=== PATIENT | male | born 1980 | race Two or more races ===

== ENCOUNTER 2017-02-10 11:24 | Emergency (ER) | payer MEDICAID, OTHER, SELFPAY ==
[~2017-02-10] VITALS: Ht 180.3 cm; Wt 113.0 kg
[2017-02-10 11:29] VITALS: BP 128/93
== END 2017-02-10 11:40 | disposition home or self-care (01) ==
LOC: ED 11:34
DX: J03.00 Acute streptococcal tonsillitis, unspecified (principal)
CPT/HCPCS: 99283

== ENCOUNTER 2017-03-27 22:33 | Observation (INO) | payer MEDICAID ==
[~2017-03-27] VITALS: Ht 175.3 cm; Wt 110.0 kg
[2017-03-27 23:33] LABS: AMPHETAMINE SCREEN, URINE Positive (Negative); BARBITURATE SCREEN, URINE Negative (Negative); BENZODIAZEPINE SCREEN, URINE Positive (Negative); CANNABINOID SCREEN, URINE Positive (Negative); COCAINE SCREEN, URINE Negative (Negative); METHADONE SCREEN, URINE Negative (Negative); OPIATE SCREEN, URINE Negative (Negative)
[2017-03-28 00:03] LABS: BASOPHILS # (AUTO) 0.04 x10^3/uL (0-0.1); BASOPHILS % (AUTO) 0 % (0-1); EOSINOPHILS # (AUTO) 0.19 x10^3/uL (0-0.4); EOSINOPHILS % (AUTO) 2 % (1-7); LYMPHOCYTES # (AUTO) 2.34 x10^3/uL (1-3.4); LYMPHOCYTES % (AUTO) 20 % (22-44); MD NO; MEAN CORPUSCULAR HEMOGLOBIN 30.3 pg (27.5-34.5); MEAN CORPUSCULAR HGB CONC 33.1 g/dL (33.2-36.2); MEAN CORPUSCULAR VOLUME 91.5 fL (81-97); MEAN PLATELET VOLUME 7.8 fL (7.4-10.4); MONOCYTES # (AUTO) 0.91 x10^3/uL (0.2-0.8); MONOCYTES % (AUTO) 8 % (2-9); NEUTROPHILS # (AUTO) 8.54 x10^3/uL (1.8-6.8); NEUTROPHILS % (AUTO) 71 % (42-75); PLATELET COUNT 300 x10^3/uL (130-400); RED BLOOD COUNT 5.59 x10^6/uL (4.38-5.82); RED CELL DISTRIBUTION WIDTH 14.1 % (9.4-14.8)
[2017-03-28 00:11] LABS: ALANINE AMINOTRANSFERASE 148 U/L (12-78); CALCIUM 9.1 mg/dL (8.5-10.1); CHLORIDE 102 mmol/L (98-107); CREATININE 1.05 mg/dL (0.7-1.3)
[2017-03-28 00:13] LABS: ALKALINE PHOSPHATASE 73 U/L (45-117); BILIRUBIN,TOTAL 0.5 mg/dL (0.2-1.0); TOTAL PROTEIN 8.7 g/dL (6.4-8.2)
[2017-03-28 00:27] LABS: ANION GAP 11 mmol/L (5-15)
[2017-03-28 00:28] LABS: SALICYLATE LEVEL < 1.7 mg/dL (2.8-20.0)
[2017-03-28 00:29] LABS: ACETAMINOPHEN < 2 mcg/mL (10-30)
[2017-03-28] MEDS ORDERED: DOCUSATE 100 MG CAPSULE PO PRN (07:30)
[2017-03-28] MEDS ORDERED: ONDANSETRON ODT 4 MG PO PRN (07:30)
[2017-03-28] MEDS ORDERED: ACETAMINOPHEN 325 MG TABLET PO PRN (07:30)
[2017-03-28] MEDS: NICOTINE 7 MG/24 HR PATCH.TD24 TD SCH (07:30)
[2017-03-28] MEDS ORDERED: IBUPROFEN 800 MG TABLET PO PRN (08:00)
[2017-03-28] MEDS ORDERED: NICOTINE 7 MG/24 HR PATCH.TD24 ONE (08:29)
[2017-03-28] MEDS: SENNA/DOCUSATE TABLET PO SCH (09:00)
[2017-03-28] MEDS: ZIPRASIDONE 20MG CAPSULE PO SCH ×3 (09:00→20:38)
[2017-03-28] MEDS ORDERED: ZIPRASIDONE 20MG CAPSULE ONE ×2 (09:10→20:34)
[2017-03-28] MEDS ORDERED: SENNA/DOCUSATE TABLET ONE (09:10)
[2017-03-28 11:48] LABS: MICROSCOPIC NOT IND
[2017-03-28 11:55] LABS: CULTURE INDICATED? NO
[2017-03-28] MEDS: LORazepam 1MG TABLET PO PRN ×3 (16:08→20:38)
[2017-03-28] MEDS ORDERED: LORazepam 1MG TABLET ONE ×2 (17:52→20:34)
[2017-03-29 05:09] LABS: BASOPHILS # (AUTO) 0.18 x10^3/uL (0-0.1); BASOPHILS % (AUTO) 2 % (0-1); EOSINOPHILS # (AUTO) 0.63 x10^3/uL (0-0.4); EOSINOPHILS % (AUTO) 7 % (1-7); LYMPHOCYTES # (AUTO) 3.14 x10^3/uL (1-3.4); LYMPHOCYTES % (AUTO) 36 % (22-44); MD NO; MEAN CORPUSCULAR HEMOGLOBIN 30.7 pg (27.5-34.5); MEAN CORPUSCULAR VOLUME 90.3 fL (81-97); MEAN PLATELET VOLUME 7.6 fL (7.4-10.4); MONOCYTES # (AUTO) 0.74 x10^3/uL (0.2-0.8); MONOCYTES % (AUTO) 8 % (2-9); NEUTROPHILS # (AUTO) 4.15 x10^3/uL (1.8-6.8); NEUTROPHILS % (AUTO) 47 % (42-75); PLATELET COUNT 264 x10^3/uL (130-400); RED BLOOD COUNT 5.43 x10^6/uL (4.38-5.82); RED CELL DISTRIBUTION WIDTH 13.9 % (9.4-14.8)
[2017-03-29 05:13] LABS: ANION GAP 6 mmol/L (5-15); CALCIUM 8.7 mg/dL (8.5-10.1); CHLORIDE 107 mmol/L (98-107)
[2017-03-29 05:15] LABS: CREATININE 1.08 mg/dL (0.7-1.3)
[2017-03-29] MEDS ORDERED: ZIPRASIDONE 20MG CAPSULE ONE ×2 (08:02→20:24)
[2017-03-29] MEDS: ZIPRASIDONE 20MG CAPSULE PO SCH ×2 (08:04→20:27)
[2017-03-29] MEDS ORDERED: DOCUSATE 100 MG CAPSULE ONE (08:25)
[2017-03-29] MEDS ORDERED: LORazepam 1MG TABLET ONE ×3 (08:25→18:02)
[2017-03-29] MEDS: LORazepam 1MG TABLET PO PRN ×3 (08:28→18:23)
[2017-03-29] MEDS: NICOTINE 7 MG/24 HR PATCH.TD24 TD SCH (08:28)
[2017-03-29] MEDS: SENNA/DOCUSATE TABLET PO SCH (09:00)
[2017-03-29 13:46] LABS: ALBUMIN 3.3 g/dL (3.4-5.0); ANION GAP 4 mmol/L (5-15); CALCIUM 8.7 mg/dL (8.5-10.1); CHLORIDE 107 mmol/L (98-107)
[2017-03-29 13:50] LABS: ALANINE AMINOTRANSFERASE 137 U/L (12-78); ALKALINE PHOSPHATASE 79 U/L (45-117); BILIRUBIN,TOTAL 0.3 mg/dL (0.2-1.0); CREATININE 1.25 mg/dL (0.7-1.3); TOTAL PROTEIN 7.6 g/dL (6.4-8.2)
[2017-03-29] MEDS ORDERED: DIPHENHYDRAMINE 25 MG CAPSULE ONE ×2 (19:08→20:24)
[2017-03-29] MEDS: DIPHENHYDRAMINE 25 MG CAPSULE PO PRN ×2 (19:20→20:27)
[2017-03-30] MEDS: NICOTINE 7 MG/24 HR PATCH.TD24 TD SCH (07:30)
[2017-03-30] MEDS ORDERED: NICOTINE 14MG/24 HR PATCH.TD24 ONE (08:32)
[2017-03-30] MEDS ORDERED: ZIPRASIDONE 20MG CAPSULE ONE (08:32)
[2017-03-30] MEDS ORDERED: SENNA/DOCUSATE TABLET ONE (08:33)
[2017-03-30] MEDS: SENNA/DOCUSATE TABLET PO SCH (08:47)
[2017-03-30] MEDS: ZIPRASIDONE 20MG CAPSULE PO SCH ×2 (08:47→21:57)
[2017-03-30] MEDS ORDERED: LORazepam 1MG TABLET ONE (08:49)
[2017-03-30] MEDS: LORazepam 1MG TABLET PO PRN ×2 (08:50→17:00)
[2017-03-30] MEDS ORDERED: DIPHENHYDRAMINE 25 MG CAPSULE ONE (09:32)
[2017-03-30] MEDS: DIPHENHYDRAMINE 25 MG CAPSULE PO PRN ×2 (09:33→22:01)
[2017-03-30 16:39] VITALS: BP 119/84
[2017-03-30 16:52] VITALS: BP 119/84
[2017-03-30 20:03] VITALS: BP 136/93
[2017-03-31] MEDS: LORazepam 1MG TABLET PO PRN ×3 (06:08→18:33)
[2017-03-31 07:07] VITALS: BP 134/85
[2017-03-31] MEDS: NICOTINE 7 MG/24 HR PATCH.TD24 TD SCH (07:35)
[2017-03-31] MEDS: SENNA/DOCUSATE TABLET PO SCH (08:45)
[2017-03-31] MEDS: ZIPRASIDONE 20MG CAPSULE PO SCH ×2 (08:45→20:05)
[2017-03-31 20:02] VITALS: BP 126/83
[2017-03-31] MEDS: DIPHENHYDRAMINE 25 MG CAPSULE PO PRN (20:04)
[2017-03-31] MEDS ORDERED: TRAZODONE 100MG TABLET PO ONE (21:00)
[2017-04-01] MEDS: NICOTINE 7 MG/24 HR PATCH.TD24 TD SCH (07:42)
[2017-04-01 07:46] VITALS: BP 127/91
[2017-04-01] MEDS: SENNA/DOCUSATE TABLET PO SCH (08:01)
[2017-04-01] MEDS: ZIPRASIDONE 20MG CAPSULE PO SCH ×2 (08:01→20:17)
[2017-04-01] MEDS: LORazepam 1MG TABLET PO PRN ×2 (08:28→19:58)
[2017-04-01 19:07] VITALS: BP 118/76
[2017-04-01] MEDS: DIPHENHYDRAMINE 25 MG CAPSULE PO PRN (20:17)
[2017-04-01] MEDS ORDERED: TRAZODONE 100MG TABLET PO SCH (21:00)
[2017-04-02 07:39] VITALS: BP 120/79
[2017-04-02] MEDS: LORazepam 1MG TABLET PO PRN (08:01)
[2017-04-02] MEDS: SENNA/DOCUSATE TABLET PO SCH (08:01)
[2017-04-02] MEDS: ZIPRASIDONE 20MG CAPSULE PO SCH (08:01)
[2017-04-02] MEDS: NICOTINE 7 MG/24 HR PATCH.TD24 TD SCH (08:01)
== END 2017-04-02 13:58 ==
LOC: ED 23:59 → EDIP 03-28 03:06 → INTOOBSV 03-28 03:06 → OBSVTOIN 03-28 03:06 → 2N 03-30 16:05
PROVIDERS: ADMIT Internal Medicine; ATTEND Internal Medicine
DX: R45.851 Suicidal ideations (principal); D72.829 Elevated white blood cell count, unspecified; F12.90 Cannabis use, unspecified, uncomplicated; F15.90 Other stimulant use, unspecified, uncomplicated; F43.12 Post-traumatic stress disorder, chronic; F32.3 Major depressive disorder, single episode, severe with psychotic features; F17.210 Nicotine dependence, cigarettes, uncomplicated; I10 Essential (primary) hypertension; Z59.0 Homelessness
CPT/HCPCS: 36415; 80048; 80053; 80307; 80329; 81003; 85025; 93005; 99285; G0378; Q0163; G0480

== ENCOUNTER 2017-04-30 05:51 | Observation (INO) | payer MEDICAID ==
[~2017-04-30] VITALS: Ht 180.3 cm; Wt 115.1 kg
[2017-04-30] MEDS ORDERED: ZIPRASIDONE 20 MG INJ IM ONE ×2 (06:38→07:00)
[2017-04-30 07:12] LABS: BASOPHILS # (AUTO) 0.12 x10^3/uL (0-0.1); BASOPHILS % (AUTO) 1 % (0-1); EOSINOPHILS # (AUTO) 0.11 x10^3/uL (0-0.4); EOSINOPHILS % (AUTO) 1 % (1-7); LYMPHOCYTES # (AUTO) 2.85 x10^3/uL (1-3.4); LYMPHOCYTES % (AUTO) 19 % (22-44); MD NO; MEAN CORPUSCULAR HEMOGLOBIN 30.4 pg (27.5-34.5); MEAN CORPUSCULAR HGB CONC 34.1 g/dL (33.2-36.2); MEAN PLATELET VOLUME 7.5 fL (7.4-10.4); MONOCYTES # (AUTO) 0.96 x10^3/uL (0.2-0.8); MONOCYTES % (AUTO) 7 % (2-9); NEUTROPHILS # (AUTO) 10.73 x10^3/uL (1.8-6.8); NEUTROPHILS % (AUTO) 73 % (42-75); PLATELET COUNT 214 x10^3/uL (130-400); RED BLOOD COUNT 5.51 x10^6/uL (4.38-5.82); RED CELL DISTRIBUTION WIDTH 13.8 % (9.4-14.8)
[2017-04-30 07:25] LABS: ALANINE AMINOTRANSFERASE 52 U/L (12-78); ALBUMIN 3.9 g/dL (3.4-5.0); ANION GAP 8 mmol/L (5-15); CALCIUM 8.5 mg/dL (8.5-10.1); CHLORIDE 112 mmol/L (98-107)
[2017-04-30 07:27] LABS: ALKALINE PHOSPHATASE 76 U/L (45-117); BILIRUBIN,TOTAL 0.5 mg/dL (0.2-1.0); TOTAL PROTEIN 8.5 g/dL (6.4-8.2)
[2017-04-30 07:28] LABS: ACETAMINOPHEN < 2 mcg/mL (10-30); SALICYLATE LEVEL < 1.7 mg/dL (2.8-20.0)
[2017-04-30 07:31] LABS: AMPHETAMINE SCREEN, URINE Positive (Negative); BARBITURATE SCREEN, URINE Negative (Negative); BENZODIAZEPINE SCREEN, URINE Positive (Negative); CANNABINOID SCREEN, URINE Positive (Negative); COCAINE SCREEN, URINE Negative (Negative); METHADONE SCREEN, URINE Negative (Negative); OPIATE SCREEN, URINE Negative (Negative)
[2017-04-30] MEDS ORDERED: THIAMINE 100MG TABLET ONE ×2 (10:43→12:23)
[2017-04-30] MEDS ORDERED: FOLIC ACID 1 MG TABLET ONE ×2 (10:44→12:24)
[2017-04-30] MEDS: FOLIC ACID 1 MG TABLET PO SCH ×2 (10:50→12:30)
[2017-04-30] MEDS: THIAMINE 100MG TABLET PO SCH ×2 (10:50→12:30)
[2017-04-30] MEDS ORDERED: ACETAMINOPHEN 325 MG TABLET PO PRN (12:00)
[2017-04-30] MEDS ORDERED: ONDANSETRON ODT 4 MG PO PRN (12:00)
[2017-04-30] MEDS ORDERED: POTASSIUM CHLORIDE 20 MEQ TAB.ER.PRT PO ONE (12:00)
[2017-04-30] MEDS ORDERED: POTASSIUM CHLORIDE 20 MEQ TAB.ER.PRT ONE (12:24)
[2017-04-30] MEDS ORDERED: ZIPRASIDONE 20MG CAPSULE ONE ×2 (12:24→20:34)
[2017-04-30] MEDS: ZIPRASIDONE 20MG CAPSULE PO SCH ×3 (12:30→21:00)
[2017-04-30] MEDS: MAGNESIUM OXIDE 400 MG TABLET PO SCH (12:30)
[2017-04-30] MEDS ORDERED: TRAZ100T15 PO (14:55)
[2017-04-30] MEDS ORDERED: ZIPR20CA2 PO (14:55)
[2017-04-30] MEDS ORDERED: HYDR50TA13 PO (14:55)
[2017-04-30] MEDS ORDERED: KETOROLAC 30 MG/1 ML ONE (17:09)
[2017-04-30] MEDS ORDERED: LORazepam 1MG TABLET ONE (20:34)
[2017-04-30] MEDS: LORazepam 1MG TABLET PO PRN (20:36)
[2017-05-01 06:37] LABS: BASOPHILS # (AUTO) 0.06 x10^3/uL (0-0.1); BASOPHILS % (AUTO) 1 % (0-1); EOSINOPHILS # (AUTO) 1.02 x10^3/uL (0-0.4); EOSINOPHILS % (AUTO) 13 % (1-7); LYMPHOCYTES # (AUTO) 2.73 x10^3/uL (1-3.4); LYMPHOCYTES % (AUTO) 34 % (22-44); MD NO; MEAN CORPUSCULAR HEMOGLOBIN 30.6 pg (27.5-34.5); MEAN CORPUSCULAR HGB CONC 33.6 g/dL (33.2-36.2); MEAN CORPUSCULAR VOLUME 91.2 fL (81-97); MEAN PLATELET VOLUME 7.6 fL (7.4-10.4); MONOCYTES # (AUTO) 0.56 x10^3/uL (0.2-0.8); MONOCYTES % (AUTO) 7 % (2-9); NEUTROPHILS # (AUTO) 3.75 x10^3/uL (1.8-6.8); NEUTROPHILS % (AUTO) 46 % (42-75); PLATELET COUNT 211 x10^3/uL (130-400); RED BLOOD COUNT 5.68 x10^6/uL (4.38-5.82); RED CELL DISTRIBUTION WIDTH 14.1 % (9.4-14.8)
[2017-05-01 06:38] LABS: ALANINE AMINOTRANSFERASE 68 U/L (12-78); ALBUMIN 3.3 g/dL (3.4-5.0); ANION GAP 7 mmol/L (5-15); CALCIUM 8.7 mg/dL (8.5-10.1); CHLORIDE 108 mmol/L (98-107)
[2017-05-01 06:41] LABS: ALKALINE PHOSPHATASE 72 U/L (45-117); BILIRUBIN,TOTAL 0.6 mg/dL (0.2-1.0); CREATININE 0.96 mg/dL (0.7-1.3); TOTAL PROTEIN 7.6 g/dL (6.4-8.2)
[2017-05-01] MEDS: THIAMINE 100MG TABLET PO SCH ×2 (07:10→07:58)
[2017-05-01] MEDS: FOLIC ACID 1 MG TABLET PO SCH ×2 (07:10→07:58)
[2017-05-01] MEDS ORDERED: THIAMINE 100MG TABLET ONE (07:56)
[2017-05-01] MEDS ORDERED: POTASSIUM CHLORIDE 20 MEQ TAB.ER.PRT ONE (07:57)
[2017-05-01] MEDS ORDERED: FOLIC ACID 1 MG TABLET ONE (07:57)
[2017-05-01] MEDS ORDERED: MAGNESIUM OXIDE 400 MG TABLET ONE (07:57)
[2017-05-01] MEDS ORDERED: ZIPRASIDONE 20MG CAPSULE ONE (07:57)
[2017-05-01] MEDS: MAGNESIUM OXIDE 400 MG TABLET PO SCH (07:58)
[2017-05-01] MEDS: ZIPRASIDONE 20MG CAPSULE PO SCH ×3 (07:58→23:00)
[2017-05-01] MEDS ORDERED: POTASSIUM CHLORIDE 20 MEQ TAB.ER.PRT PO SCH (08:00)
[2017-05-01] MEDS: LORazepam 1MG TABLET PO PRN ×2 (08:39→20:14)
[2017-05-01] MEDS ORDERED: LORazepam 1MG TABLET ONE ×3 (08:39→20:13)
[2017-05-01] MEDS ORDERED: LORazepam 1MG TABLET PO ONE (17:00)
[2017-05-02] MEDS ORDERED: LORazepam 1MG TABLET ONE ×2 (02:38→08:36)
[2017-05-02] MEDS: LORazepam 1MG TABLET PO PRN ×5 (02:41→20:10)
[2017-05-02] MEDS ORDERED: FOLIC ACID 1 MG TABLET ONE (08:12)
[2017-05-02] MEDS ORDERED: THIAMINE 100MG TABLET ONE (08:12)
[2017-05-02] MEDS ORDERED: ZIPRASIDONE 20MG CAPSULE ONE (08:12)
[2017-05-02] MEDS ORDERED: MAGNESIUM OXIDE 400 MG TABLET ONE (08:12)
[2017-05-02] MEDS: MAGNESIUM OXIDE 400 MG TABLET PO SCH (08:16)
[2017-05-02] MEDS: THIAMINE 100MG TABLET PO SCH (08:16)
[2017-05-02] MEDS: FOLIC ACID 1 MG TABLET PO SCH (08:16)
[2017-05-02] MEDS: ZIPRASIDONE 20MG CAPSULE PO SCH ×2 (08:17→20:10)
[2017-05-02 12:06] VITALS: BP 149/82
[2017-05-02 16:41] VITALS: BP 120/86
[2017-05-02 20:15] VITALS: BP 122/77
[2017-05-03 07:40] VITALS: BP 124/89
[2017-05-03] MEDS: MAGNESIUM OXIDE 400 MG TABLET PO SCH (07:42)
[2017-05-03] MEDS: LORazepam 1MG TABLET PO PRN ×5 (07:42→20:06)
[2017-05-03] MEDS: FOLIC ACID 1 MG TABLET PO SCH (07:42)
[2017-05-03] MEDS: THIAMINE 100MG TABLET PO SCH (07:42)
[2017-05-03] MEDS: ZIPRASIDONE 20MG CAPSULE PO SCH ×2 (07:42→20:06)
[2017-05-03 20:00] VITALS: BP 97/68
[2017-05-04] MEDS: LORazepam 1MG TABLET PO PRN ×5 (07:11→23:21)
[2017-05-04] MEDS: FOLIC ACID 1 MG TABLET PO SCH (07:11)
[2017-05-04] MEDS: THIAMINE 100MG TABLET PO SCH (07:11)
[2017-05-04] MEDS: MAGNESIUM OXIDE 400 MG TABLET PO SCH (07:11)
[2017-05-04] MEDS: ZIPRASIDONE 20MG CAPSULE PO SCH ×2 (07:11→20:54)
[2017-05-04 07:30] VITALS: BP 114/78
[2017-05-04 19:30] VITALS: BP 104/69
[2017-05-04] MEDS: TRAZODONE 100MG TABLET PO SCH (20:53)
[2017-05-05] MEDS: LORazepam 1MG TABLET PO PRN ×5 (01:26→20:22)
[2017-05-05 08:30] VITALS: BP 118/83
[2017-05-05] MEDS: FOLIC ACID 1 MG TABLET PO SCH (08:40)
[2017-05-05] MEDS: ZIPRASIDONE 20MG CAPSULE PO SCH ×2 (08:40→20:22)
[2017-05-05] MEDS: MAGNESIUM OXIDE 400 MG TABLET PO SCH (08:40)
[2017-05-05] MEDS: THIAMINE 100MG TABLET PO SCH (08:40)
[2017-05-05 19:34] VITALS: BP 106/70
[2017-05-05] MEDS: TRAZODONE 100MG TABLET PO SCH (20:23)
[2017-05-06 07:43] VITALS: BP 108/75
[2017-05-06] MEDS: THIAMINE 100MG TABLET PO SCH (07:47)
[2017-05-06] MEDS: FOLIC ACID 1 MG TABLET PO SCH (07:47)
[2017-05-06] MEDS: LORazepam 1MG TABLET PO PRN (07:47)
[2017-05-06] MEDS: MAGNESIUM OXIDE 400 MG TABLET PO SCH (07:47)
[2017-05-06] MEDS: ZIPRASIDONE 20MG CAPSULE PO SCH (07:47)
== END 2017-05-06 12:16 | disposition home or self-care (01) ==
LOC: ED 06:40 → EDIP 10:19 → 3E 05-02 12:05
PROVIDERS: ADMIT Internal Medicine; ATTEND Internal Medicine
DX: R45.851 Suicidal ideations (principal); F43.10 Post-traumatic stress disorder, unspecified; R44.3 Hallucinations, unspecified; F31.9 Bipolar disorder, unspecified; D72.829 Elevated white blood cell count, unspecified; Z91.14 Patient's other noncompliance with medication regimen; I10 Essential (primary) hypertension; F10.20 Alcohol dependence, uncomplicated; Z91.5 Personal history of self-harm; R00.0 Tachycardia, unspecified
CPT/HCPCS: 36415; 80053; 80307; 80329; 85025; 96372; 99285; G0378; J3486; Q0177; G0480

== ENCOUNTER 2020-09-28 19:41 | Emergency (ER) | payer MEDICAID, OTHER ==
[~2020-09-28] VITALS: Ht 180.3 cm; Wt 109.0 kg
[~2020-09-28 19:41] MED LIST: HYDR50TA99 PO; TRAZ-175 PO; ZIPR20CA2 PO
--- NOTE | 2020-09-28 20:46 | NUR ---
PT PRESENTS TO ER FOR HOMICIDAL IDEATION, PT DENIES SI AT THIS TIME, PT STATES HE IS NOT FEELING WELL MENTALY, PHYSICALLY AND EMOTIONALY, PT STATES HIS FAMILY THAT IS N [place] IS OUT TO GET HIM AND SEE HIM FAIL, PT GOES ON A LONG WINDED STORY ABOUT HOW HIS FAMILY WANT HIM TO GET INTO DRUGS SO HE CANT TESTIFY AGAINST THEM IN COURT, PT LEFT [place] TO GET AWAY FROM HIS FAMILY, PT IS A/OX3, PT DENIES ANY MEDICAL CONDITONS, PT STATES HE USES METH AND WEED, PT ALSO STATES THAT HE HAS BEEN ACCEPTED INTO THE [facility] FOR TREATMENT FOR HIS DRUG ADDICTION, GARAGE DOORS DOWN, WITH SITTER IN LINE OF SIGHT
[2020-09-28 21:09] LABS: AMPHETAMINE SCREEN, URINE Positive (Negative); BARBITURATE SCREEN, URINE Negative (Negative); BENZODIAZEPINE SCREEN, URINE Negative (Negative); CANNABINOID SCREEN, URINE Positive (Negative); COCAINE SCREEN, URINE Negative (Negative); METHADONE SCREEN, URINE Negative (Negative); OPIATE SCREEN, URINE Negative (Negative)
[2020-09-28 21:17] LABS: MEAN CORPUSCULAR HEMOGLOBIN 29.7 pg (27.5-34.5); MEAN CORPUSCULAR HGB CONC 34.3 g/dL (33.2-36.2); MEAN PLATELET VOLUME 7.5 fL (7.4-10.4); PLATELET COUNT 242 x10^3/uL (130-400); RED BLOOD COUNT 5.21 x10^6/uL (4.38-5.82); RED CELL DISTRIBUTION WIDTH 14.8 % (9.4-14.8)
[2020-09-28 21:22] LABS: CHLORIDE 106 mmol/L (98-107)
[2020-09-28 21:36] LABS: ALANINE AMINOTRANSFERASE 65 U/L (12-78); ALBUMIN 3.3 g/dL (3.4-5.0); ALKALINE PHOSPHATASE 82 U/L (45-117); ANION GAP 7 mmol/L (5-15); BILIRUBIN,TOTAL 0.4 mg/dL (0.2-1.0); CALCIUM 8.9 mg/dL (8.5-10.1); CREATININE 0.94 mg/dL (0.7-1.3); TOTAL PROTEIN 7.9 g/dL (6.4-8.2)
[2020-09-28 21:45] LABS: SALICYLATE LEVEL < 1.7 mg/dL (2.8-20.0)
[2020-09-28 21:48] LABS: BAND#(MANUAL) 0.19 x10^3/uL; BANDS%(MANUAL) 2 % (0-7); BASOS% (MANUAL) 1 % (0-1); EOS% (MANUAL) 1 % (1-7); LYMPH#(MANUAL) 4.51 x10^3/uL (1-3.4); LYMPHS% (MANUAL) 47 % (22-44); MONOS#(MANUAL) 1.06 x10^3/uL (0.3-2.7); MONOS% (MANUAL) 11 % (2-9); REACTIVE LYMPHS # (MANUAL) 0.29 x10^3/uL (0-0); REACTIVE LYMPHS % (MANUAL) 3 % (0-0); SEG#(MANUAL) 3.36 x10^3/uL (1.8-6.8); SEGS% (MANUAL) 35 % (42-75); SMUDGE CELLS 1+
[2020-09-28 21:49] LABS: <PLATELET ESTIMATE> ADEQUATE; MICROCYTOSIS 1+; PMNS WITH VACUOLES 1+
[2020-09-28 21:50] LABS: <PLT MORPHOLOGY> NORMAL PLT MORPH
--- NOTE | 2020-09-28 21:55 | NUR ---
Tele psych paged
--- NOTE | 2020-09-28 21:56 | NUR ---
PT DEMANDING TO USE HIS TABLET AND PHONE TO CALL [place] AUTHORIT[employer] AND TO TALK TO THE [facility] WHO HE CLAIMS TO BE IN CONTACT WITH FOR A LONG TIME NOW, THIS RN STATED SINCE PT IS HERE ON A POTENTIAL PSYCHE HOLD THAT WE NEED TO GO THROUGH THE PROCESS AND PROTOCOL SET BY THIS HOSPITAL, PT CONTINUOUSLY DEMANDING TO USE HIS TABLET, PROVIDER CAME TO SEE PT AND EXPLAIN TO PT EXACTLY WHAT THE PROCESS WOULD BE IN ORDER TO GET HIM THE HELP HE NEEDS, PT CONTINUES TO GO IN CIRCLES ABOUT HIS TABLET AND HOW THERE IS A MURDER CONSPIRACY AGAINST HIM, PT NAD AT THIS TIME, SITTER IN LINE OF SIGHT, GARAGE DOORS DOWN
[2020-09-28] MEDS ORDERED: LORazepam 1MG TABLET ONE (22:28)
[2020-09-28] MEDS ORDERED: ZIPRASIDONE 20 MG INJ IM ONE (22:30)
[2020-09-28] MEDS ORDERED: LORazepam 1MG TABLET PO ONE (22:30)
--- NOTE | 2020-09-28 22:35 | NUR ---
PT REFUSED IM INJECTION OF GEODON BUT AGREED TO TAKE ATIVAN PO
--- NOTE | 2020-09-28 23:34 | NUR ---
PT LAYING IN BED, PT CALM AT THIS MOMENT, PT WAITING FOR TELEPSYCHE, SITTER IN LINE OF SIGHT, GARAGE DOORS DOWN
--- NOTE | 2020-09-28 23:53 | NUR ---
PT CURRENTLY USING THROUGHPUT PHONE TO SPEAK WITH DR. NIEVES FOR TELEPSYCH
--- NOTE | 2020-09-29 00:54 | NUR ---
Susan gil in [facility] - 09/29/20 at 0118 by FILIBERTO Report from Johnna FLOWER
[2020-09-29] MEDS ORDERED: OLANZAPINE ODT 10MG ONE ×3 (00:58→12:54)
--- NOTE | 2020-09-29 00:59 | NUR ---
Pt dropped med, this RN retrieved another and when trying to administer the ODT med the pt refused and asked to speak with his floor trader. Pt made aware that he could make this call on the hospital phone and pt got verbally agressive and aggitated. Paper containing rights for legal holds provided per request. LAKEISHA
[2020-09-29] MEDS ORDERED: ZIPRASIDONE 20 MG INJ IM ONE (01:11)
--- NOTE | 2020-09-29 01:18 | NUR ---
Report from Puneet FLOWER
--- NOTE | 2020-09-29 01:19 | NUR ---
Pt medicated per provider order
--- NOTE | 2020-09-29 02:01 | NUR ---
Pt resting in bed with eyes closed. Sitter in view of pt. ADIA, LAKEISHA
--- NOTE | 2020-09-29 03:06 | NUR ---
PT CONTINUES TO REST IN BED WITH EYES CLOSED, HEIDIN, SITTER IN VIEW OF PT
[2020-09-29] MEDS: OLANZAPINE ODT 10MG PO SCH ×2 (04:45→12:57)
--- NOTE | 2020-09-29 06:16 | NUR ---
Pt up and yelling in hallway that the lights in his room are burning his eyes and that the staff are hurting him. Pt made aware that no staff has been in his room during this even and would never have the intention of hurting him. Provider notified of pt outburst
--- NOTE | 2020-09-29 07:02 | NUR ---
REPORT FROM MARA, ASSUME CARE OF PT AT THIS TIME. PT SLEEPING AT THIS TIME. SITTER AT DOORWAY.
--- NOTE | 2020-09-29 07:56 | NUR ---
Throughput: Packet faxed to [facility] at this time
[2020-09-29] MEDS ORDERED: LORazepam 1MG TABLET ONE (07:59)
[2020-09-29] MEDS ORDERED: LORazepam 1MG TABLET PO ONE (08:00)
--- NOTE | 2020-09-29 08:13 | NUR ---
PT YELLING AND AMBULATING IN [place], STATING HE WANTS FOOD AND MEDICINE. HARPER RN INTERVENED WHILE THIS RN IN OTHER PT ROOM PROVIDING CARE. MEAL TRAY AND MEDICATION PROVIDED. PT UPDATED ON POC. SITTER AT DOORWAY.
--- NOTE | 2020-09-29 08:30 | NUR ---
PT STATING HE'S BEEN ACCEPTED AT [facility]. THROUGHPUT RN NOTIFIED, WILL F/U WITH PHONE CALL TO FACILITY.
--- NOTE | 2020-09-29 08:45 | NUR ---
Throughput: Pt requested [facility] be called for placement. Spoke with intake nurse who stated there are no beds at time time.
--- NOTE | 2020-09-29 08:55 | NUR ---
PT INFORMED THAT NO BEDS AVAILABLE AT [facility] AND THEY HAVE A WAITLIST OF MORE THAN TEN. PT STATES HE DOESN'T BELIEVE THEY DIDN'T HOLD A BED FOR HIM. PT DENIES SI/HI, STATES "I SHOULDN'T BE ON A HOLD". ALL QUESTIONS ANSWERED. PT REQUESTING TO CALL [facility]. NUMBER PROVIDED AND PT ASSISTED WITH PHONE CALL TO CENTER. VS UPDATED IN COMPUTER.
--- NOTE | 2020-09-29 09:51 | NUR ---
PT SLEEPING, NAD, SITTER AT DOORWAY.
--- NOTE | 2020-09-29 10:00 | NUR ---
BS REPORT TO ADAMS, TRANSFER OF CARE AT THIS TIME.
--- NOTE | 2020-09-29 10:29 | NUR ---
ASSUMED PT CARE, SITTER PRESENT WITH PT IN DIRECT LINE OF SIGHT. PT RESTING WITH EYES CLOSED, RESP EVEN NON-LABORED. NAD NOTED.
--- NOTE | 2020-09-29 11:05 | NUR ---
PT ARROUSES WHEN RN ENTERS ROOM, PILLOW PROVIDED AND MEAL TRAY ORDERED. PT DENIES ANY NEW REQUESTS. PT INFORMED THAT PSYCH RRTS WILL BE IN TODAY TO SPEAK WITH HIM. CALL LIGHT W/I REACH
[2020-09-29 11:30] VITALS: BP 128/82
[2020-09-29] MEDS ORDERED: OLANZAPINE 10 MG TABLET ONE (12:52)
--- NOTE | 2020-09-29 13:28 | NUR ---
Susan gil in [facility] - 09/29/20 at 1335 by DIGNA Pt will go [facility] at 1500 per Aranza due to staffing
--- NOTE | 2020-09-29 14:29 | NUR ---
LATE ENTRY FOR 1350, PROVIDED PT TOOTHBRUSH, TOOTHPASTE, SOAP TO WASH UP PER HIS REQUEST.
--- NOTE | 2020-09-29 14:31 | NUR ---
Patient/Caregiver given discharge instructions and they have confirmed that they understand the instructions. Patient ambulatory with steady gait. NAD, all questions answered appropriately, denies additional needs at this time. No personal belongings left in room after discharge. BUS PASS X 2 PROVIDED
== END 2020-09-29 14:32 | disposition home or self-care (01) ==
LOC: ED 23:59
DX: F25.8 Other schizoaffective disorders (principal); F32.9 Major depressive disorder, single episode, unspecified; F22 Delusional disorders; F15.10 Other stimulant abuse, uncomplicated; E11.9 Type 2 diabetes mellitus without complications; F17.210 Nicotine dependence, cigarettes, uncomplicated
CPT/HCPCS: 36415; 80053; 80299; 80307; 80320; 80329; 84443; 85025; 96372; 99284; 99406; J3486; G0480

== ENCOUNTER 2020-09-30 15:15 | Emergency (ER) | payer OTHER ==
[~2020-09-30] VITALS: Ht 180.3 cm; Wt 107.2 kg
--- NOTE | 2020-09-30 15:46 | NUR ---
LAB AND DA ALVAREZ AT BEDSIDE.
[2020-09-30] MEDS ORDERED: OLANZAPINE ODT 10MG ONE (15:58)
[2020-09-30] MEDS ORDERED: OLANZAPINE 10 MG INJ IM PRN (16:00)
[2020-09-30] MEDS ORDERED: OLANZAPINE ODT 10MG PO ONE (16:00)
--- NOTE | 2020-09-30 16:01 | NUR ---
OK TO GIVE NAYELI BONILLA, FREDIS MEDEIROS, AKIKO BLANCO UPDATES IF THEY CALL.
[2020-09-30 16:02] LABS: BASOPHILS % (AUTO) 1 % (0-1); EOSINOPHILS % (AUTO) 4 % (1-7); LYMPHOCYTES % (AUTO) 51 % (22-44); MEAN CORPUSCULAR HEMOGLOBIN 29.1 pg (27.5-34.5); MEAN CORPUSCULAR HGB CONC 33.4 g/dL (33.2-36.2); MEAN PLATELET VOLUME 6.9 fL (7.4-10.4); MONOCYTES % (AUTO) 9 % (2-9); NEUTROPHILS % (AUTO) 36 % (42-75); PLATELET COUNT 266 x10^3/uL (130-400); RED BLOOD COUNT 5.36 x10^6/uL (4.38-5.82)
--- NOTE | 2020-09-30 16:02 | NUR ---
PT PROVIDED W/ URINAL, EDUCATED ON NEED FOR SAMPLE. MEDICATED PER EMAR. RESTING ON GURNEY W/ CALL LIGHT IN REACH AND SIDE RAILS UPX2. RESP EVEN AND UNLABORED, ADIA.
[2020-09-30 16:06] LABS: ALBUMIN 3.3 g/dL (3.4-5.0); ANION GAP 10 mmol/L (5-15); CALCIUM 8.8 mg/dL (8.5-10.1); CHLORIDE 105 mmol/L (98-107); SALICYLATE LEVEL 1.9 mg/dL (2.8-20.0)
[2020-09-30 16:08] LABS: ALANINE AMINOTRANSFERASE 66 U/L (12-78); ALKALINE PHOSPHATASE 75 U/L (45-117); BILIRUBIN,TOTAL 0.5 mg/dL (0.2-1.0); CREATININE 1.04 mg/dL (0.7-1.3); TOTAL PROTEIN 8.2 g/dL (6.4-8.2)
--- NOTE | 2020-09-30 16:23 | NUR ---
LATE ENTRY: THIS IS A 40 YO M W/ C/O PARANOID DELUSIONS. HX OF SCHITZOPHRENIA. PT [facility] IS "OUT TO GET ME". PT PRESENTS W/ FLAT AFFECT. DENIES SI/HI. PT PLACED ON L2K. BELONGINGS REMOVED AND PLACED IN SAFE KEEPING. PT IN GOWN. AWAITING TRANSFER TO ROOM W/ GARAGE DOORS AND SITTER FOR SAFETY.
--- NOTE | 2020-09-30 16:37 | NUR ---
URINE COLLECTED AND SENT TO LAB.
--- NOTE | 2020-09-30 16:42 | NUR ---
PT GIVEN SAFETY DIET TRAY.
--- NOTE | 2020-09-30 16:44 | NUR ---
SITTER OUTSIDE ROOM AT THIS TIME.
[2020-09-30 17:07] LABS: AMPHETAMINE SCREEN, URINE Positive (Negative); BARBITURATE SCREEN, URINE Negative (Negative); BENZODIAZEPINE SCREEN, URINE Negative (Negative); CANNABINOID SCREEN, URINE Positive (Negative); COCAINE SCREEN, URINE Negative (Negative); METHADONE SCREEN, URINE Negative (Negative); OPIATE SCREEN, URINE Negative (Negative)
--- NOTE | 2020-09-30 17:13 | NUR ---
REPORT FROM MINERVA FLOWER, SITTER IN PLACE, NAD.
--- NOTE | 2020-09-30 17:35 | NUR ---
PACKET FAXED TO [facility]
--- NOTE | 2020-09-30 18:45 | NUR ---
GIVEN DINNER. SITTER IN PLACE. NAD.
--- NOTE | 2020-09-30 18:57 | NUR ---
Susan gil in [facility] - 09/30/20 at 1859 by YARITZA RECEIVED REPORT FROM LINNEA FLOWER. TRANSFER OF CARE. SITTER OUTSIDE ROOM FOR SAFETY MONITORING
--- NOTE | 2020-09-30 18:59 | NUR ---
RECEIVED REPORT FROM LINNEA FLOWER. TRANSFER OF CARE.
[2020-09-30 19:20] VITALS: BP 126/72
--- NOTE | 2020-09-30 19:20 | NUR ---
Patient is resting comfortably in bed. Bed in lowest, rails engaged, call light on lap. Vital Signs within normal limits. WCTM.
--- NOTE | 2020-09-30 19:22 | NUR ---
PT STATES HE HAS THOUGHT OF HURTING HIMSELF BY JUMPING INTO TRAFFIC. HE SAYS HE HAS INTENTION ON COMPLETEING THIS PLAN BUT HASNT BEGAN TO START IT. PT ALSO STATES HE HAS HX OF SUICICE ATTEMPT BY [place] OD. HAS HAD NO SUICIDE ATTEMPT IN LAST 3 MONTHS. WCTM.
--- NOTE | 2020-09-30 20:39 | NUR ---
GAVE REPORT TO HEIDI FLOWER AND [facility]
[2020-09-30] MEDS ORDERED: OLANZAPINE 5 MG TABLET PO SCH (21:00)
--- NOTE | 2020-09-30 22:29 | NUR ---
PT ESCORTED TO [facility] BY SARAH, NO ACUTE CHANGES NOTED. PT THANKING THIS NURSE FOR ALL WE HAVE DONE. PT AMBULATORY WITH STEADY GAIT. NO ADDITIONAL QUESTIONS OR NEEDS AT THIS TIME.
--- NOTE | 2020-09-30 22:37 | NUR ---
Patient/Caregiver given discharge instructions and they have confirmed that they understand the instructions. Patient ambulatory with steady gait. NAD, all questions answered appropriately, denies additional needs at this time. No personal belongings left in room after discharge. PT LEFT6 VIA [facility] TO [facility]. ADIA
== END 2020-09-30 22:39 ==
LOC: ED 15:45 → EDIP 17:12 → UNDOADMIN 17:12 → ED 22:33
DX: F22 Delusional disorders (principal); F60.0 Paranoid personality disorder; E11.9 Type 2 diabetes mellitus without complications; F20.9 Schizophrenia, unspecified; F15.10 Other stimulant abuse, uncomplicated
CPT/HCPCS: 36415; 80053; 80299; 80307; 80320; 80329; 85025; 99284; G0480

== ENCOUNTER 2020-10-26 01:43 | Emergency (ER) | payer MEDICAID, OTHER ==
[~2020-10-26] VITALS: Ht 177.8 cm; Wt 111.6 kg
[2020-10-26 01:49] VITALS: BP 129/93
[2020-10-26] MEDS ORDERED: OLANZAPINE 10 MG TABLET ONE (02:31)
[2020-10-26] MEDS ORDERED: OLANZAPINE 10 MG TABLET PO SCH (09:00)
== END 2020-10-26 03:14 | disposition home or self-care (01) ==
LOC: ED 03:07
DX: F15.10 Other stimulant abuse, uncomplicated (principal); F17.210 Nicotine dependence, cigarettes, uncomplicated; E11.9 Type 2 diabetes mellitus without complications
CPT/HCPCS: 99406

== ENCOUNTER 2020-10-28 00:58 | Emergency (ER) | payer MEDICAID ==
[~2020-10-28] VITALS: Ht 172.7 cm; Wt 125.0 kg
[2020-10-28 01:34] LABS: BASOPHILS % (AUTO) 1 % (0-1); EOSINOPHILS % (AUTO) 7 % (1-7); LYMPHOCYTES % (AUTO) 45 % (22-44); MEAN CORPUSCULAR HEMOGLOBIN 29.3 pg (27.5-34.5); MEAN CORPUSCULAR HGB CONC 34.3 g/dL (33.2-36.2); MEAN PLATELET VOLUME 7.1 fL (7.4-10.4); MONOCYTES % (AUTO) 6 % (2-9); NEUTROPHILS % (AUTO) 41 % (42-75); PLATELET COUNT 249 x10^3/uL (130-400); RED BLOOD COUNT 5.22 x10^6/uL (4.38-5.82); RED CELL DISTRIBUTION WIDTH 14.2 % (9.4-14.8)
--- NOTE | 2020-10-28 01:39 | NUR ---
PT C/O OF SI AND DENIES HI. PT REPORTS THAT HE WANTS TO KILL HIMSELF BY OD ON METH OR JUMPING IN FRONT OF A CAR. PT STATES HE THREW AWAY SOME DRUGS [facility] HAS THE MEANS TO DO BOTH SI THOUGHTS. PT CHANGED INTO GOWN WITH SOCKS AND UNDERWEAR LEFT ON PT. BELONGINBGS SECURED IN LOCKERS. GARAGE DOORS SECURED. PT ASKED TO URINATE IN URINAL. TECH AT BEDSIDE FOR EKG. PT ANXIOUS AND CONTINUES TO SPEAK ABOUT KILLING HIMSELF. PT STATES HE TAKES ZYPREXA AND HAS NOT TAKEN IT IN 10 DAYS.
[2020-10-28 01:42] LABS: ALBUMIN 3.4 g/dL (3.4-5.0); ANION GAP 7 mmol/L (5-15); CALCIUM 8.2 mg/dL (8.5-10.1); CHLORIDE 108 mmol/L (98-107); SALICYLATE LEVEL 1.8 mg/dL (2.8-20.0)
[2020-10-28 01:45] LABS: ALANINE AMINOTRANSFERASE 80 U/L (12-78); ALKALINE PHOSPHATASE 78 U/L (45-117); BILIRUBIN,TOTAL 0.6 mg/dL (0.2-1.0); CREATININE 0.83 mg/dL (0.7-1.3); TOTAL PROTEIN 7.9 g/dL (6.4-8.2)
--- NOTE | 2020-10-28 02:00 | NUR ---
PT REPEATED ASKED TO HAVE A UA SAMPLE READY BUT PT KEEPS GETTING DISTRACTED.
[2020-10-28 03:49] LABS: AMPHETAMINE SCREEN, URINE Positive (Negative); BARBITURATE SCREEN, URINE Negative (Negative); BENZODIAZEPINE SCREEN, URINE Negative (Negative); CANNABINOID SCREEN, URINE Positive (Negative); COCAINE SCREEN, URINE Negative (Negative); METHADONE SCREEN, URINE Negative (Negative); OPIATE SCREEN, URINE Negative (Negative)
--- NOTE | 2020-10-28 04:31 | NUR ---
PT GIVEN BLANKETS. PT ATTEMPTING TO SLEEP. PT TALKING TO HIMSELF. BREATHING EVEN AND UNLABORED. NADN. SUAZO
--- NOTE | 2020-10-28 06:16 | NUR ---
Patient is SLEEPING comfortably in bed. EYES CLOSED. Bed in lowest, rails engaged, call light on lap. WCTM. SAFETY PRECAUTIONS PUT INTO PLACE. BREATHING EVEN AND UNLABORED. ADIA
--- NOTE | 2020-10-28 06:51 | NUR ---
GAVE REPORT TO COLIN FLOWER. TRANSFER OF CARE.
--- NOTE | 2020-10-28 07:10 | NUR ---
Report recieved form sweta FLOWER. PT resting in bed, safety precautions in place.
[2020-10-28 08:26] VITALS: BP 116/83
--- NOTE | 2020-10-28 08:30 | NUR ---
MEAL PROVIDED. SAFETY PRECAUTIONS IN PLACE.
[2020-10-28] MEDS ORDERED: OLANZAPINE 10 MG TABLET PO SCH (11:00)
--- NOTE | 2020-10-28 11:11 | NUR ---
Ben psychology fellow at bedside for eval.
[2020-10-28] MEDS ORDERED: OLANZAPINE 10 MG TABLET ONE (11:13)
--- NOTE | 2020-10-28 11:45 | NUR ---
[facility] is accepting pt. Dr. Burch is the provide and RN is Giorgi
--- NOTE | 2020-10-28 12:43 | NUR ---
[id number] CONFORMATION NUMBER PER [facility]
== END 2020-10-28 13:09 ==
LOC: ED 01:15
DX: R45.851 Suicidal ideations (principal); F23 Brief psychotic disorder; F15.129 Other stimulant abuse with intoxication, unspecified; R94.31 Abnormal electrocardiogram [ECG] [EKG]; Z72.9 Problem related to lifestyle, unspecified; E11.9 Type 2 diabetes mellitus without complications
CPT/HCPCS: 36415; 80053; 80299; 80307; 80320; 80329; 85025; 93005; 99285; G0480